=== PATIENT | male | born 1965 | race Caucasian/White ===

== ENCOUNTER 2016-10-04 06:13 | Day surgery (SDC) | payer BC ==
[2016-09-29 18:48] VITALS: BMI 28.8
[2016-10-04] MEDS ORDERED: TAMSULOSIN HCL 0.4 MG CAP.ER.24H (FP) ONE (06:49)
[2016-10-04] MEDS ORDERED: PROPOFOL 20 ML ONE (07:59)
[2016-10-04] MEDS ORDERED: ROCURONIUM BROMIDE 50 MG/5 ML VIAL ONE (07:59)
[2016-10-04] MEDS ORDERED: MIDAZOLAM HCL 2 MG/2 ML SINGLE DOSE VIAL ONE (07:59)
[2016-10-04] MEDS ORDERED: ceFAZolin SODIUM 1 GM VIAL ONE (08:21)
[2016-10-04] MEDS ORDERED: ONDANSETRON 4 MG/2 ML VIAL ONE (08:33)
[2016-10-04] MEDS ORDERED: DEXAMETHASONE SOD PHOSPHATE 4 MG/1 ML VIAL ONE (08:33)
[2016-10-04] MEDS ORDERED: HYDROmorphone HCL/PF 1 MG/ML VIAL (FOR PYXIS CHARGING ONLY) ONE (08:44)
[2016-10-04] MEDS ORDERED: ONDANSETRON 4 MG/2 ML VIAL IVPUSH ONE (09:45)
[2016-10-04] MEDS ORDERED: ONDANSETRON 4 MG/2 ML VIAL IVPUSH PRN (09:54)
[2016-10-04] MEDS ORDERED: oxyCODONE HCL 5 MG TABLET PO PRN (09:54)
[2016-10-04 10:40] VITALS: TEMP 98.2
[2016-10-04] MEDS ORDERED: oxyCODONE HCL 5 MG TABLET ONE ×2 (10:44→11:10)
[2016-10-04 13:08] VITALS: BP 110/66; PULSE 54
--- NOTE | 2016-10-04 13:45 | OP ---
DATE OF OPERATION: 10/04/2016 PREOPERATIVE DIAGNOSIS: Bilateral inguinal hernias. POSTOPERATIVE DIAGNOSIS: Incarcerated right inguinal hernia, left indirect inguinal hernia. PROCEDURE: Laparoscopic repair of incarcerated right inguinal hernia, laparoscopic repair of left inguinal hernia, both done with mesh. SURGEON: Tello Montesinos MD TECHNICAL ILLUSTRATIONS MAP INKER: Pawan De Leon MD ANESTHESIA: Loc Madrid MD (general) ESTIMATED BLOOD LOSS: Minimal. SPECIMEN: None. INDICATION FOR PROCEDURE: This is a 51-year-old gentleman who presented to the emergency room approximately 6 months ago with an acute incarceration of his right inguinal hernia. It was manually reduced and then he was supposed to have this repaired but due to personal issues did not get to it until this time. Patient states he has progressive pain in the right groin and occasional pain in the left groin and therefore wishes to have these repaired. Patient identified and appropriately positioned on the operating room table. After placement of general anesthesia, the abdomen prepped and draped in the usual sterile fashion with ChloraPrep. An infraumbilical incision made, deepened through the subcutaneous tissue. The fascia of the rectus muscle on the right identified, divided sharply. The muscle split under direct vision and dissector balloon followed by a structural balloon placed. Also under direct vision, a suprapubic 11-mm port placed. The following structures on the right side identified: Pubic tubercle, Fili ligament, inferior epigastric vessels, spermatic cord, and lateral abdominal wall. In this dissection, patient had an incarcerated direct component. This contained fat and a portion of bladder. This was reduced back in the preperitoneal space with blunt dissection. He had a moderate-sized indirect inguinal hernia sac reduced back into the preperitoneal space with blunt dissection. A 4.5 x 6 piece of Versatex mesh keyholed, placed through the superior port site. The mesh wrapped around the cord structure laterally to reconstruct the internal ring. Laterally, mesh anchored to the anterior abdominal wall and lateral abdominal wall. Medially, mesh anchored to anterior abdominal wall, pubic tubercle, Fili ligament. Upon completion of the right side, similar structures on the left side identified. On the left side, patient was noted to have no direct component, but the direct floor was clearly attenuated. He had a small indirect inguinal hernia sac reduced back in the preperitoneal space with blunt dissection. Another 4.5 x 6 piece of Versatex mesh keyholed, placed through the superior port site. The mesh wrapped around the cord structures laterally to reconstruct the internal ring. Laterally, mesh anchored to the anterior abdominal wall and lateral abdominal wall. Medially, mesh well overlapped in the midline, anchored to the anterior abdominal wall, pubic tubercle, and Fili ligament. The preperitoneal space deflated under direct vision. The operative field examined and noted to be hemostatic. All anterior abdominal wall and lateral abdominal wall anchors placed under direct counter-palpation. Ports were removed. Port sites hemostatic. The fascia at both port sites reapproximated with interrupted 0 Vicryl suture and the skin closed with 4-0 subcuticular Biosyn followed by Dermabond. At the conclusion of the case, sponge and needle counts correct. ATTESTATION: Brief operative note handwritten on the preprinted form. [facility] queried prior to giving narcotics and the prescriptions done electronically. Bessie FUENTES [id number] cc: Govind Padgett MD
== END 2016-10-04 13:10 | disposition home or self-care (01) ==
LOC: FASU 06:13
PROVIDERS: ATTEND Surgery
PROC: 0YUA4JZ Supplement Bilateral Inguinal Region with Synthetic Substitute, Percutaneous Endoscopic Approach (ICD-10-PCS; principal; 2016-10-04 08:35)
DX: K40.00 Bilateral inguinal hernia, with obstruction, without gangrene, not specified as recurrent (principal)
CPT/HCPCS: 94760